=== PATIENT | female | born 1960 | race Caucasian/White ===

== ENCOUNTER 2019-09-01 14:12 | Emergency (ER) | payer MEDICAID ==
[~2019-09-01] VITALS: Ht 170.2 cm; Wt 54.5 kg
[~2019-09-01 14:12] MED LIST: NYST15CR30 TP
[2019-09-01] MEDS ORDERED: normal saline 1000ML IV soln IVB ONE (14:30)
[2019-09-01] MEDS: ondansetron/PF 4mg/2ml inj IV ONE ×2 (14:30→15:33)
[2019-09-01 15:35] LABS: CLARITY,URINE CLEAR (Clear); COLOR,URINE YELLOW (Yellow); GLUCOSE, URINE NEGATIVE (Neg); KETONES,URINE TRACE mg/dl (Neg); LEUKOCYTE ESTERASE ,URINE NEGATIVE (Neg); NITRITES, URINE NEGATIVE (Neg); OCCULT BLOOD,URINE NEGATIVE (Neg); PH,URINE 5.5 (4.8-8.0); PROTEIN,URINE NEGATIVE (Neg)
[2019-09-01 15:38] LABS: BASOPHILS % (AUTO) 0.3 % (0-1); EOSINOPHILS # (AUTO) 0.2 X10'3 (0-0.9); EOSINOPHILS % (AUTO) 2.1 % (0-6); HEMATOCRIT 37.2 % (35.0-45.0); HEMOGLOBIN 12.3 g/dl (12.0-16.0); LYMPHOCYTES # (AUTO) 1.1 X10'3 (1.1-4.8); LYMPHOCYTES % (AUTO) 10.4 % (21-51); MEAN CORPUSCULAR HEMOGLOBIN 27.8 PG (27.0-31.0); MEAN CORPUSCULAR HGB CONC 33.2 g/dL (33.0-36.5); MEAN CORPUSCULAR VOLUME 83.7 FL (78-98); MEAN PLATELET VOLUME 6.7 FL (7.4-10.4); MONOCYTES # (AUTO) 0.7 X10'3 (0-0.9); NEUTROPHILS # (AUTO) 8.1 X10'3 (1.8-7.7); NEUTROPHILS % (AUTO) 80.2 % (42-75); PLATELET COUNT 248 X10'3 (140-440); RED BLOOD COUNT 4.44 X10'6 (4.20-5.60); WHITE BLOOD COUNT 10.1 X10'3 (4.5-11.0)
[2019-09-01 15:40] LABS: UA COLLECTION TYPE CLN CATCH MIDSTREAM
[2019-09-01 15:45] LABS: URINE HCG NEGATIVE (NEG)
[2019-09-01 15:48] LABS: ALANINE AMINOTRANSFERASE 22 U/L (12-78); ALBUMIN 3.5 G/DL (3.4-5.0); ALBUMIN/GLOBULIN RATIO 0.9 (1.1-1.5); ALKALINE PHOSPHATASE 117 IU/L (46-116); ANION GAP 8 (8-16); ASPARTATE AMINO TRANSFERASE 21 U/L (10-37); BILIRUBIN,TOTAL 0.3 MG/DL (0.1-1.0); BLOOD UREA NITROGEN 18 MG/DL (7-18); CALCIUM 8.6 MG/DL (8.5-10.1); CHLORIDE 107 MMOL/L (99-107); GLUCOSE 108 MG/DL (70-104); SODIUM 142 MMOL/L (135-145); TOTAL CARBON DIOXIDE 27.3 MMOL/L (24-32); TOTAL PROTEIN 7.2 G/DL (6.4-8.2); eGFR 57 ML/MIN
[2019-09-01 15:50] LABS: LIPASE 484 U/L (73-393); TROPONIN I < 0.04 NG/ML (0.0-0.05)
[2019-09-01 15:51] LABS: URINE AMPHETAMINE SCREEN POSITIVE (Neg); URINE BARBITUATE SCREEN NEGATIVE (Neg); URINE BENZODIAZEPINES SCREEN NEGATIVE (Neg); URINE CANNABINOID SCREEN NEGATIVE (Neg); URINE COCAINE SCREEN NEGATIVE (Neg); URINE METHADONE SCREEN NEGATIVE (Neg); URINE OPIATE SCREEN NEGATIVE (Neg); URINE PHENCYCLIDINE SCREEN NEGATIVE (Neg)
[2019-09-01 15:58] VITALS: BP 121/73
[2019-09-01 16:02] LABS: HCG SERUM QL NEGATIVE
== END 2019-09-01 16:14 | disposition home or self-care (01) ==
LOC: ER 14:13
DX: F15.10 Other stimulant abuse, uncomplicated (principal); R11.2 Nausea with vomiting, unspecified; R51 Headache; K59.00 Constipation, unspecified; Z59.0 Homelessness; Z79.899 Other long term (current) drug therapy
CPT/HCPCS: 36415; 80053; 80305; 81003; 81025; 83690; 84484; 84703; 85025; 96360; 99284; J7030; 93005; J2405

== ENCOUNTER 2024-10-25 20:37 | Inpatient (IN) | payer MEDICAID ==
[~2024-10-25] VITALS: Ht 170.2 cm; Wt 56.2 kg
--- NOTE | 2024-10-25 22:28 | Physician Documentation ---
History of Present Illness ~ Chief Complaint: Extremity Swelling Stated Complaint: FOOT LAC Time Seen by MD: 23:48 Primary Medical Doctor: None HPI This is a 64-year-old female who presents with right foot pain and swelling for the past two days, patient reports that she had a piece of glass lodged itself in her foot at the beginning of symptoms and she believes she pulled it out though is concerned she did not get all the glass out. Patient reports subjective fever and chills. Date: Oct 26, 2024 Time: 00:02 Additional note by Justice Lebron DO: I took over the care of this patient from previous physician. I reviewed any previous notes available, obtain my own history, review of systems and physical examination was performed by myself. 64-year-old female presented for evaluation of right foot pain and swelling over the last two days after a piece of glass appears her shoe enlarged itself in her foot. The symptoms are getting worse. She believes she pulled out all of the glass, however the infection seems to have set in. Pain is worse with ambulation, palliated with the position of comfort. Reports fever and chills. Feels the pain is now ascending up her leg. This never happened in the past. Denies any chest pain, difficulty breathing, nausea, vomiting, diarrhea, abdominal pain. He tells me she does not drink, does not smoke, does not do drugs. Tetanus witin 5 years: No Medication Reconciliation Allergies: Coded Allergies: No Known Allergies (Unverified , 10/25/24) Scheduled Nystatin/Triamcin (Nystatin-Triamcinolone Cream), 15 GM TP DAILY Past Medical History Past Medical History: No Pertinent History Past Surgical History: noncontributory Alcohol Use: None Drug Use: methamphetamine Lives In: Homeless Occupation: disabled Review of Systems ROS As stated above in the HPI, otherwise all systems are reviewed and negative. Physical Exam Vital Signs: Temperature: 98.0, Source: Temporal, Heart Rate: 98, Respiratory Rate: 18, BP: 115/55, Pulse Oximetry: 98, Weight: 56.200 Physical Exam GENERAL: Awake, alert, oriented, GCS 15, no apparent distress, appears markedly older than stated age, answers questions, follows commands appropriately. Examined in bed 9. HEENT: Atraumatic, normocephalic, edentulous, pupils equal, extraocular muscles intact, sclerae anicteric, mucus membranes dry, oropharynx is clear, no stridor. NECK: supple, full active range of motion, trachea midline, no thyromegaly, no lymphadenopathy, no JVD. CARDIOVASCULAR: regular rate/rhythm, no murmurs/gallops/rubs, Pulses are 2+ in all extremities and symmetric. Capillary refill less than 2 seconds. PULMONARY: Nonlabored, good air movement ,no respiratory distress, speaking in full sentences, clear to auscultation bilaterally, no wheezing, no ronchi, no rales, no accessory muscle use. GASTROINTESTINAL: Soft, non-tender, non-distended, normal active bowel sounds, no organomegaly, no pulsatile masses, no CVA tenderness. NEUROLOGIC: Lucid with normal mental status. Normal facial symmetry. Moves all extremities symmetrically and with purpose. No truncal ataxia. Speech is fluid without evidence of dysarthria or aphasia, no focal deficits appreciated. MUSCULOSKELETAL: There is full range of motion of all extremities. There is no joint pain or joint swelling or joint erythema. There is no muscle pain or tenderness or swelling. EXTREMITIES: warm, well-perfused, no cyanosis, no clubbing, no edema, no acute deformities. Skin: warm, dry, no rashes or lesions, no jaundice, no petechiae orpurpura. No ecchymosis. PSYCHIATRIC: Normal affect, normal insight, normal concentration. Focused exam: Right foot is examined. There is marked swelling to the dorsum of the right foot with old laceration with a small amount of polyp purulent discharge on the dorsum of the foot. Laceration is approximately 1 cm in length. No crepitus appreciated. Erythema and calor noted. Full range of motion of the ankle. No lymphangitis. Progress Results/Orders Results/Orders Orders - JUSTICE LEBRON DO Culture Blood (10/25/24 23:54) Vancomycin 1gm 200ml H20 (Peg) (Vancomyc (10/26/24 01:35) ESR (10/26/24 02:06) Potassium Cl 10meq/100ml Bag (Potassium (10/26/24 02:10) Completed Orders - JUSTICE LEBRON DO Lacticsepsis (10/25/24 23:54) Normal Saline 1000ml (0.9% Sodium Chlori (10/26/24 01:35) Piperacillin/Tazo 3.375gm/50ml (Zosyn 3. (10/26/24 01:35) Vital Signs 10/25/24 10/25/24 22:06 23:14 Temp 98.0 Pulse 98 79 Resp 18 15 B/P (MAP) 115/55 126/64 (84) Pulse Ox 98 100 Laboratory Tests Test 10/26/24 01:13 White Blood Count 14.4 H Red Blood Count 3.51 L Hemoglobin 10.7 L Hematocrit 31.0 L Mean Corpuscular Volume 88.4 Mean Corpuscular Hemoglobin 30.4 Mean Corpuscular Hemoglobin Concent 34.4 Red Cell Distribution Width 13.8 Platelet Count 169 Mean Platelet Volume 6.7 L Neutrophils (%) (Auto) 83.9 H Lymphocytes (%) (Auto) 8.6 L Monocytes (%) (Auto) 7.1 Eosinophils (%) (Auto) 0.1 Basophils (%) (Auto) 0.3 Neutrophils # (Auto) 12.1 H Lymphocytes # (Auto) 1.2 Monocytes # (Auto) 1.0 H Eosinophils # (Auto) 0.0 Basophils # (Auto) 0.0 CBC Comment Sodium Level 133 L Potassium Level 2.9 *L Chloride Level 100 Carbon Dioxide Level 23.3 L Anion Gap 10 Blood Urea Nitrogen 14 Creatinine 0.70 Estimated GFR/1.73 m2 85 BUN/Creatinine Ratio 20.0 Glucose Level 127 H Lactic Acid Level 0.5 Calcium Level 8.9 C-Reactive Protein 22.85 H Albumin 2.9 L Chemistry Comments Medical Decision Making Findings MSE performed in triage and patient returned to ED lobby by nursing staff to await available ED room Date: Oct 26, 2024 Time: 00:04 Additional note by Justice Lebron, DO: I took over the care of this patient from previous physician. I reviewed any previous notes available, obtain my own history, review of systems and physical examination was performed by myself. Facility Status: ED Holds, [facility] process The plan was discussed with the patient, who demonstrates clear understanding of the plan and is in agreement with the plan unless otherwise noted in the chart. All questions have been answered, all concerns were addressed unless otherwise documented. I was available throughout their ED stay for frequent reassessment and questions. Differential Diagnoses (considered and possible or likely): [Foot cellulitis, foreign body in the foot, abscess, osteomyelitis, less likely necrotizing fasciitis] ??Differential Diagnoses (considered and unlikely, not requiring evaluation currently): [No evidence of neurovascular injury] MDM Data Please see [facility] for the following: Independent Historians and external Records Review. Historian: [Patient] Independent Historians: ?[Record review] Medication Management: [Reviewed medication list] Social History and determinants: [Reviewed] Please see the body of the note for the following: Any independent interpretations of ECG, imaging studies. All vitals signs/haemodynamics, ordered tests were independently reviewed and interpreted by myself. Nursing triage complaint and vitals reviewed, additional nursing notes were reviewed as available and I agree unless otherwise noted or documented in contradiction in the chart Vital Signs: Independently reviewed Labs: Independently interpreted Imaging: Independently interpreted Old Medical Records: Independently reviewed, see [facility] for relevant summary and information Pulse Oximetry: [97%] interpreted as [normal on room air] by me [Vice Chair: [Regular Rate, Regular rhythm, no ectopy, NSR] reviewed and interpreted by me] Additionally notably showing: [Tachycardia had improved. No hypotension. Leukocytosis noted. Hypokalemia noted. CRP is markedly elevated. X-ray shows some cortical irregularity of the 5th digit. In the setting of sexually somewhat concerning for early osteomyelitis, less likely open fracture.] Tests considered but not ordered include: [Advanced Imaging does not appear to be necessary] Social Determinants of Health Impact: Patient was evaluated in [facility], [facility] [place] to healthcare due to below par ratio of patient to medical providers. [] Comorbid Conditions Impacting Present Evaluation and Care/Treatment: [See above] Management Discussions with other Healthcare Providers: [Hospitalist regarding admission] Treatment and Disposition Medication Management (Given or considered): [Fluids and antibiotics, electrolyte replacement]. See EMR for details Consideration for Hospitalization/Escalation/Deescalation of Care: Admission for observation has been considered, [however the patient is able to tolerate p.o., their symptoms are controlled, they are able to rely on oral medications, and their chief complaint/diagnosis can be managed on outpatient basis.] ?ED Course:?[Date: Oct 26, 2024 Time: 01:36 when patient's CBC had returned with a elevated white count, based on her elevated heart rate, source of infection in her right foot, she met sepsis criteria. Antibiotics were ordered. Fluids were ordered. She does not appear to have severe sepsis, does not require 30 cc/kilos. Lactic acid is normal. Not severe sepsis. Not septic shock. No clinical deterioration. The laceration is too old to repair] ?Shared decision making:?[] Code status:?FULL Please see the full Electronic Medical Record for full details of nursing documentation, medications list, other records of complete past medical history and conditions, vital signs, laboratory studies, and any radiologic study interpretations by radiologists. Portions of this note were completed using ideeli dictation software and as a result there may exist minor errors in spelling. I have reviewed elements of past family and social history and agree as included in note. Departure Disposition: 09 ADMITTED INPATIENT Impression: Primary Impression: Cellulitis of right foot Additional Impressions: Sepsis Foot laceration Condition: Stable Referrals: NO PRIMARY CARE PROVIDER (PCP) Signature Scribe Signature: No scribe Attestation: This note accurately reflects clinical decisions, work performed by myself, DO KATHRIN Marley [facility] Oct 25, 2024 22:28 JUSTICE LEBRON DO Oct 26, 2024 00:05
--- NOTE | 2024-10-26 00:25 | RADIOLOGY REPORT ---
CLINICAL INDICATION: Possible foreign body TECHNIQUE: DI FOOT, COMPLETE (3VW MIN) Comparison: None FINDINGS/IMPRESSION: : Cortical irregularity of the distal articular margin of the 5th proximal phalanx may represent minima lly displaced fracture. No other fractures are identified. Minimal plantar calcaneal enthesopathy. No evidence of radiodense foreign body. Moderate dorsal soft tissue swelling. Soft tissues are otherwise unremarkable.
[2024-10-26 01:26] LABS: MEAN PLATELET VOLUME 6.7 FL (7.4-10.4); RED CELL DISTRIBUTION WIDTH 13.8 % (11.5-14.5)
[2024-10-26] MEDS: normal saline 1000ML IV soln IVB ONE (01:35)
[2024-10-26] MEDS: VANCOMYCIN 1GM 200ML H20 (PEG) 200 ML IV ONE (01:35)
[2024-10-26] MEDS: piperacillin/tazo 3.375gm/50ml 50 ML IV ONE (01:35)
[2024-10-26 01:39] LABS: CREATININE 0.70 MG/DL (0.40-0.90); TOTAL CARBON DIOXIDE 23.3 MMOL/L (24-32); eCRCL 73 ML/MIN; eGFR 85 ML/MIN
[2024-10-26] MEDS: potassium CL 10mEq/100ml bag 100 ML IV SCH (02:10)
[2024-10-26] MEDS ORDERED: magnesium Cl slow-release 64mg tablet PO PRN (03:00)
[2024-10-26] MEDS ORDERED: mag hydrox/Alum hydrox/simeth 30ml oral suspension PO PRN (03:00)
[2024-10-26] MEDS: normal saline 1000ml 1,000 ML IV SCH (03:00)
[2024-10-26] MEDS ORDERED: magnesium sulf-water 4G/100mL 100 ML IV PRN (03:00)
[2024-10-26] MEDS ORDERED: potassium Cl 40MEQ/1/2NS 520ml 520 ML IV PRN (03:00)
[2024-10-26] MEDS ORDERED: magnesium sulf-water 2g/50mL 50 ML IV PRN (03:00)
[2024-10-26] MEDS ORDERED: magnesium hydroxide 30ml (MOM) UD suspension PO PRN (03:00)
[2024-10-26] MEDS ORDERED: ondansetron/PF 4mg/2ml inj IV PRN (03:00)
[2024-10-26] MEDS ORDERED: potassium Cl 20 mEq SR tablet PO PRN (03:00)
[2024-10-26] MEDS: HYDROcodone/acetaminophen 5mg/325mg tablet PO PRN (04:03)
[2024-10-26] MEDS: potassium Cl 20 mEq SR tablet PO PRN (04:04)
--- NOTE | 2024-10-26 04:13 | HISTORY AND PHYSICAL-Residence ---
History & Physical Providers to Resident Creating Document: CHRISSY VALENZUELA, RES ~ History of Present Illness Primary Medical Doctor: None Reason for Admit\Complaint: Foot cellulitis History of Present Illness This is a 64-year-old female with history of IV meth use came to the ER with a chief complaint of right foot pain, swelling and redness for two days. She reported that about three days ago a piece of glass fell on her foot, lodged in her showed which she pulled it out but is concerned that she could not get all glass out. Also reports fever and chills. Also reports some discharge from the wound. Patient has not seen a primary care doctor for a while. She is homeless. Allergies: Coded Allergies: No Known Allergies (Unverified , 10/25/24) Home Medications Home Medications Active Nystatin-Triamcinolone Cream (Nystatin/Triamcin) 15 Gm Cream.gm. 15 Gm TP DAILY Past Medical History Past Medical History No significant past medical history Past Surgical History Surgical History Comment Cholecystectomy Past Social History Social History Comment Quit smoking 19 years ago, previously smoked a pack a day for 30 years No history of alcohol use Uses IV meth, last use was one month ago She is homeless, lives with her partner Alcohol Use: None Drug Use: Methamphetamine Lives In: Homeless Occupation: disabled ROS Constitutional: Reports: chills, fever Eyes: Denies: no symptoms reported, see HPI, pain, discharge, blurred vision, double vision, itching, photophobia, redness, tearing, other ENT: Denies: no symptoms reported, see HPI, ear pain, ear bleeding, ear discharge, hearing loss, ear ringing, nose pain, nose bleeding, nose congestion, nose discharge, throat pain, throat swelling, voice change, mouth pain, mouth bleeding, mouth swelling, other Respiratory: Denies: no symptoms reported, see HPI, cough, orthopnea, shortness of breath, SOB with exertion, SOB at rest, stridor, wheezing, hemoptysis, pain with breathing, other Cardiovascular: Denies: no symptoms reported, see HPI, chest pain, left arm pain, diaphoresis, lightheadedness, syncope, edema, palpitations, irregular heart rate, other Gastrointestinal: Denies: no symptoms reported, see HPI, abdomen distended, abdominal pain, nausea, vomiting, diarrhea, constipated, melena, hematemesis, hematochezia, rectal bleeding, rectal pain, dysphagia, poor appetite, poor fluid intake, other Genitourinary: Denies: no symptoms reported, see HPI, burning, discharge, dysuria, frequency, flank pain, hematuria, incontinence, pain, decreased urine output, urgency, other Female Genitalia: Denies: no reported symptoms, see HPI, vaginal discharge, vaginal pain, pelvic pain, abnormal bleeding, dyspareunia, , other Neurological: Denies: no symptoms reported, see HPI, speech problem, headache, dizziness, fainting, tingling, left sided numbness, right sided numbness, left sided weakness, right sided weakness, problems walking, unable to move lower ext, unable to move upper ext, petit mal seizures, tonic-clonic seizures, cognitive dysfunction, other Musculoskeletal: Reports: pain, swelling Exam Vitals: Vital Signs Date Time Temp Pulse Resp B/P (MAP) Pulse Ox O2 Delivery O2 Flow Rate FiO2 10/26/24 04:03 16 10/26/24 03:46 10/26/24 03:44 74 99 10/25/24 22:06 98.0 General: General: Awake and Alert, no acute distress. HEENT: Conjunctiva pink, Sclera clear, Mucus Membranes moist. Neck: Supple without masses and tenderness. Resp: Unlabored. Lungs clear to auscultation bilaterally. Heart: Regular Rate and rhythm, normal S1 and S2 without murmur, rub or gallop. Abdomen: Soft and non tender no organomegaly Extremities: No cyanosis,clubbing or edema. Right foot, 1 cm laceration noted, foot is red, swollen, tender, warm. Skin: Warm and Dry. Neurology: Cranial nerves 2-12 intact.No focal motor or sensory deficits. Musculoskeletal: No restricted range of motion. No deformities noted. Diagnostic Data Last Recorded Lab Results: 10/26/24 0113 10/26/24 0113 Advance Care Planning Advanced Care plannin - 30 Minutes (I spent 17 minutes in discussing various resuscitative measures, the patient chose to be full code.) Additional Plan Assessment This is a 64-year-old female with history of IV meth use came to the ER with a chief complaint of right foot pain, swelling, warmth. She is being admitted for cellulitis Plan Cellulitis Fifth proximal phalanx minimally displaced fracture Elevated WBC count, CRP Normal lactic acid, procalcitonin ordered Cortical irregularity of the distal articular margin of the 5th proximal phalanx may represent minimally displaced fracture. No other fractures are identified.Moderate dorsal soft tissue swelling. Ordered 1 L bolus, NS@ 100 mL/hour Started ceftriaxone Pain management-morphine and [place] Hypokalemia Hyponatremia Potassium replacement protocol On IV fluids Continue to monitor with repeat labs. Normocytic anemia Hemoglobin 10.7 Iron panel ordered Fecal occult blood ordered Meth use Patient has a history of IV meth use Echocardiogram ordered for possible endocarditis Social service consult requested Substance use navigator consult requested Code status: Full code DVT prophylaxis: Heparin Diet: Regular diet Chrissy Valenzuela M.D PGY2 Addendum I personally reviewed the chart, labs and imaging and reviewed the patient with the team. I agree with the assessment and plan as documented by the resident. Patient was seen through remote audio-visual assessment through HIPAA compliance setup. Date of Service: Oct 26, 2024 Billing Provider: STEPH DUNLAP MD, PRAVAHIKA, RES Oct 26, 2024 04:13 STEPH DUNLAP MD Oct 26, 2024 06:35
[2024-10-26 04:23] LABS: LEUKOCYTE ESTERASE ,URINE NEGATIVE (Neg); NITRITES, URINE NEGATIVE (Neg); OCCULT BLOOD,URINE NEGATIVE (Neg)
[2024-10-26 04:25] LABS: UA COLLECTION TYPE CLN CATCH MIDSTREAM
[2024-10-26 04:37] LABS: PRO BRAIN NATRIURETIC PEPTIDE 796 PG/ML (0-125)
[2024-10-26] MEDS ORDERED: NO HOME MEDS (04:51)
[2024-10-26] MEDS: normal saline 1000ml 1,000 ML IVB ONE (04:55)
[2024-10-26] MEDS: CefTRIAXone/D5W-Rocephin 1gm 50 ML IV SCH (04:55)
[2024-10-26] MEDS: HYDROcodone/acetaminophen 10/325mg tab PO ONE (08:02)
[2024-10-26 08:31] LABS: % IRON SATURATION 7 % (11-46)
[2024-10-26 08:31] LABS: URINE AMPHETAMINE SCREEN POSITIVE (Neg); URINE BARBITUATE SCREEN NEGATIVE (Neg); URINE BENZODIAZEPINES SCREEN NEGATIVE (Neg); URINE CANNABINOID SCREEN NEGATIVE (Neg); URINE COCAINE SCREEN NEGATIVE (Neg); URINE METHADONE SCREEN NEGATIVE (Neg); URINE OPIATE SCREEN NEGATIVE (Neg); URINE PHENCYCLIDINE SCREEN NEGATIVE (Neg)
[2024-10-26] MEDS: K and/or MAG REPLACEMENT MC SCH (08:35)
[2024-10-26] MEDS: docusate sod 100mg capsule PO SCH (08:39)
[2024-10-26] MEDS: heparin, porcine 5000 units/ml vial SQ SCH (08:46)
[2024-10-26 09:00] VITALS: RESP 16
--- NOTE | 2024-10-26 10:39 | PROGRESS NOTE ---
Daily Progress Note Providers to CC ~ Objective Vital Signs Date Time Temp Pulse Resp B/P (MAP) Pulse Ox O2 Delivery O2 Flow Rate FiO2 10/26/24 08:23 10/26/24 08:02 14 10/26/24 07:48 94 98 0 10/25/24 22:06 98.0 Result Diagram: 10/26/2411210/26/24112 General: Awake and Alert, no acute distress. HEENT: Conjunctiva pink, Sclera clear, Mucus Membranes moist. Neck: Supple without masses and tenderness. Resp: Unlabored. Lungs clear to auscultation bilaterally. Heart: Regular Rate and rhythm, normal S1 and S2 without murmur, rub or gallop. Abdomen: Soft and non tender no organomegaly Extremities: No cyanosis,clubbing or edema. Right foot, 1 cm laceration noted, foot is red, swollen, tender, warm. Skin: Warm and Dry. Neurology: .No focal motor or sensory deficits. Musculoskeletal: No restricted range of motion. No deformities noted. Other Results Medications reviewed Problem\Assessment\Plan 64-year-old female with history of IV meth use came to the ER with a chief complaint of right foot pain, swelling and redness for two days 1. Cellulitis 2.Fifth proximal phalanx minimally displaced fracture 3.Hypokalemia 4.Hyponatremia 5.Anemia -H/H monitored 6.History of meth use: Social service consult requested. Substance use navigator consult requested Code status: Full code DVT prophylaxis: Heparin Diet: Regular diet SANTA AGUIRRE MD Oct 26, 2024 10:38
[2024-10-26 10:48] VITALS: BP 102/41; PULSE 70; RESP 20; TEMP 98.7; O2SAT 100
[2024-10-26 10:58] VITALS: RESP 16
--- NOTE | 2024-10-26 14:35 | DISCHARGE SUMMARY ---
Discharge Summary Providers to CC ~ Discharge Summary Admission Diagnosis: cellsalmalitis Hospital Course DATE OF ADMISSION: 10/25/2024 DATE OF DISCHARGE: 10/26/2024 Discharge Diagnosis\Comment: Right foot cellulitis Operations\Procedures: None Consultants: None Complications: None Condition on DC: Stable Discharge Summary: 64 years old female with a history of IV meth use, presented to the ER for right foot pain swelling and redness x2 days. Patient reported that about three days ago a piece of glass fell on her foot, lodged in, she pulled it out and is con cerned that she could not get the whole glass out. Patient was admitted on the surgical floor however when I I went to make my rounds on the floor RN reported to me that patient left AMA earlier this morning and she refused to sign the paperwork *Problems/Diagnosis: (1) Cellulitis of right foot Status: Acute Total Time Spent on D/C: Up to 30 Minutes Date of Service: Oct 26, 2024 Billing Provider: SANTA AGUIRRE MD Common Visit Codes: NOT BILLABLE SANTA AGUIRRE MD Oct 26, 2024 14:35
== END 2024-10-26 13:02 | disposition left against medical advice (07) | DRG 383 ==
LOC: ER 20:38 → ED HOLD 10-26 03:00 → SUR 3N 10-26 08:15
PROVIDERS: ADMIT Internal Medicine Sleep Medicine; ATTEND Internal Medicine
DX: L03.115 Cellulitis of right lower limb (principal); E87.1 Hypo-osmolality and hyponatremia; Z59.00 Homelessness unspecified; D64.9 Anemia, unspecified; S92.911A Unspecified fracture of right toe(s), initial encounter for closed fracture; E87.6 Hypokalemia; Z53.29 Procedure and treatment not carried out because of patient's decision for other reasons; F15.90 Other stimulant use, unspecified, uncomplicated; W20.8XXA Other cause of strike by thrown, projected or falling object, initial encounter; Y93.89 Activity, other specified; Y92.89 Other specified places as the place of occurrence of the external cause; Z90.49 Acquired absence of other specified parts of digestive tract; Y99.8 Other external cause status
CPT/HCPCS: 36415; 73630; 80048; 80305; 81003; 82728; 83036; 83540; 83550; 83605; 83735; 83880; 84145; 85025; 85651; 86140; 87040; 99285; A6258; G0378; J0696; J1644; J7030

== ENCOUNTER 2024-10-27 09:27 | Emergency (ER) | payer MEDICAID ==
[~2024-10-27] VITALS: Ht 170.2 cm; Wt 54.8 kg
[~2024-10-27 09:27] MED LIST changes: +NO HOME MEDS; -NYST15CR30 TP
[2024-10-27 09:42] VITALS: BP 102/60; PULSE 105; RESP 18; TEMP 98.1; O2SAT 100
--- NOTE | 2024-10-27 09:58 | Physician Documentation ---
History of Present Illness ~ Chief Complaint: Foot pain Stated Complaint: FOOT INFECTION Primary Medical Doctor: None HPI 64-year-old female returns to the ED after being admitted yesterday for a right lower extremity cellulitis. She states she has a previous IV drug user and has difficult to access veins. According to the patient the ultrasound-guided IV infiltrated up on the floor and she decided to AMA because she did not want to be poked any longer.. States he would rather have oral antibiotics. Day of Onset: Oct 27, 2024 Tetanus witin 5 years: No Medication Reconciliation Allergies: Coded Allergies: No Known Allergies (Unverified , 10/25/24) Miscellaneous Medications Home Med List (No Home Medications), (Reported) Discontinued Medications Nystatin/Triamcin (Nystatin-Triamcinolone Cream), 15 GM TP DAILY Discontinued Reason: patient no longer taking Past Medical History Past Medical History: No Pertinent History Past Surgical History: noncontributory Alcohol Use: None Drug Use: methamphetamine Lives In: Homeless Occupation: disabled Review of Systems All Other Systems at this time: Reviewed and Negative ROS As stated above in the HPI, otherwise all systems are reviewed and negative. Physical Exam Vital Signs: Temperature: 98.1, Source: Temporal, Heart Rate: 105, Respiratory Rate: 18, BP: 102/60, Pulse Oximetry: 100, Weight: 54.800 Oxygen Flow Rate: 0 Physical Exam General: Alert, no apparent distress. Extremities: Notable swelling and erythema in the right lower extremity mostly at the right foot. hot to touch Neurologic: Oriented x4. Psychiatric: Normal mood and affect. Skin: Normal color, warm and dry. No edema, no ecchymosis. Progress Results/Orders Results/Orders Vital Signs 10/27/24 09:42 Temp 98.1 Pulse 105 Resp 18 B/P (MAP) 102/60 Pulse Ox 100 O2 Flow Rate 0 Medical Decision Making Findings eloped from lobby ,pt wanted a PICC line only Departure Disposition: 07 LEFT AWOL/ELOPED Impression: Primary Impression: Cellulitis of right foot Condition: Stable Referrals: NO PRIMARY CARE PROVIDER (PCP) Signature Scribe Signature: r Attestation: Scribed for Emergency,Department by Anjum Hurd NP . 10/27/24 18:00 ANJUM GUNTER NP Oct 27, 2024 09:58
== END 2024-10-27 10:56 | disposition left against medical advice (07) ==
LOC: ER 09:28
DX: L03.115 Cellulitis of right lower limb (principal)
CPT/HCPCS: 99281